=== PATIENT | female | born 1935 | race Caucasian/White ===

== ENCOUNTER → 2020-05-03 | Outpatient (CLI) | payer MEDICARE | LOC: LAB 13:33 → LAB SHORT 13:33 | DX: R30.0 Dysuria (principal) | CPT/HCPCS: 87077; 87086; 87186 ==

== ENCOUNTER 2022-12-21 07:25 | Emergency (ER) | payer MEDICARE ==
[~2022-12-21] VITALS: Ht 157.5 cm; Wt 74.8 kg
[2022-12-21 08:26] LABS: BASOPHILS ABSOLUTE AUTO 0.05 K/mm3 (0.00-0.23); BASOPHILS PERCENT AUTO 1 % (0-2); EOSINOPHILS ABSOLUTE AUTO 0.32 K/mm3 (0.00-0.68); EOSINOPHILS PERCENT AUTO 5 % (0-6); Hematocrit 40.3 % (33.0-51.0); Hemoglobin 13.5 g/dL (11.5-16.0); IMMATURE GRAN ABSOLUTE AUTO 0.01 K/mm3 (0.00-0.10); IMMATURE GRAN PERCENT AUTO 0 % (0-1); LYMPHOCYTES ABSOLUTE AUTO 1.24 K/mm3 (0.84-5.20); LYMPHOCYTES PERCENT AUTO 19 % (21-46); MONOCYTES ABSOLUTE AUTO 0.61 K/mm3 (0.16-1.47); MONOCYTES PERCENT AUTO 9 % (4-13); Mean Corpuscular HGB 32.8 pg (26.0-34.0); Mean Corpuscular HGB Conc 33.5 g/dL (31.5-36.5); Mean Corpuscular Volume 98 fL (80-100); NEUTROPHILS ABSOLUTE AUTO 4.42 K/mm3 (1.96-9.15); NEUTROPHILS PERCENT AUTO 66 % (41-73); Platelet Count 293 K/mm3 (150-400); RDW Standard Deviation 46.6 fL (35.1-46.3); Red Blood Cell Count 4.12 M/mm3 (3.80-5.20); White Blood Cell Count 6.65 K/mm3 (4.00-11.30)
[2022-12-21] MEDS ORDERED: MELO7.5 PO (08:36)
[2022-12-21] MEDS ORDERED: VENLAFAXINE HCL75 M2 PO (08:36)
[2022-12-21] MEDS ORDERED: K-Dur10 MEQ (08:36)
[2022-12-21] MEDS ORDERED: ZANAFLEX413 PO (08:36)
[2022-12-21] MEDS ORDERED: FUROSEMIDE20 MG PO (08:36)
[2022-12-21] MEDS ORDERED: DOXY100 PO (08:36)
[2022-12-21] MEDS ORDERED: LOSA50 PO (08:36)
[2022-12-21] MEDS ORDERED: OMEP20ER PO ×2 (08:37→10:15)
[2022-12-21] MEDS ORDERED: XARELTO20 M1 PO (08:37)
[2022-12-21 08:42] LABS: Albumin, Blood 3.7 g/dL (3.4-5.0); Albumin/Globulin Ratio 0.9 (0.8-1.8); Bilirubin, Total 0.6 mg/dL (0.1-1.0); Bun/Creatinine Ratio 16.4 (12.0-20.0); Calcium, Blood 10.4 mg/dL (8.5-10.1); Creatinine, Blood 0.98 mg/dL (0.40-1.00); Globulin, Blood 3.9 g/dL (2.2-4.0); Total Protein, Blood 7.6 g/dL (6.4-8.2)
[2022-12-21 10:00] VITALS: BP 157/75
[2022-12-21] MEDS ORDERED: ONDA4ODT MM (10:15)
== END 2022-12-21 10:29 | disposition home or self-care (01) ==
LOC: ER 07:25
PROVIDERS: Emergency Medicine
DX: R42 Dizziness and giddiness (principal); R10.9 Unspecified abdominal pain; R11.0 Nausea; Z79.899 Other long term (current) drug therapy; I10 Essential (primary) hypertension; E78.5 Hyperlipidemia, unspecified; K21.9 Gastro-esophageal reflux disease without esophagitis
CPT/HCPCS: 71045; 80053; 83880; 84484; 85025; 93005; 93010; 96374; 99284-25; J2405

== ENCOUNTER 2024-02-03 07:30 | Inpatient (IN) | payer MEDICARE ==
[~2024-02-03] VITALS: Ht 157.5 cm; Wt 73.8 kg
[2024-02-03] VITALS (13 sets, daily range): BP systolic 99–135; BP diastolic 48–83
[~2024-02-03 07:30] MED LIST: DOXY100 PO; FUROSEMIDE20 MG PO; K-Dur10 MEQ PO; LOSA50 PO; MELO7.5 PO; OMEP20ER PO; ONDA4ODT MM; VENLAFAXINE HCL75 M2 PO; XARELTO20 M1 PO; ZANAFLEX413 PO
[2024-02-03] MEDS ORDERED: Dexamethasone Sod Phos 10 MG/ML 1ML VIAL ONE (09:00)
[2024-02-03] MEDS ORDERED: propofoL 20 ML IV ONE ×3 (09:00→11:56)
[2024-02-03] MEDS ORDERED: FentaNYL Citrate 50 MCG/ML 2 ML Injection ONE (09:00)
[2024-02-03] MEDS ORDERED: Acetaminophen 500 MG Tab PO SCH ×2 (09:05→16:00)
[2024-02-03] MEDS ORDERED: Lactated Ringer's 1,000 ML IV SCH ×2 (09:05→09:45)
[2024-02-03] MEDS ORDERED: Ropivacaine 0.5% HCl/Pf 123.125 MG,EPINEPHrine HCL 0.25 MG,Ketorolac Tromethamine 15 MG... INFIL SCH (09:05)
[2024-02-03] MEDS ORDERED: Tranexamic Acid 100 ML IV SCH (09:05)
[2024-02-03] MEDS ORDERED: Chlorhexidine Mouth Care 15 ML UDC MT SCH (09:05)
[2024-02-03] MEDS ORDERED: CeFAZolin Sodium 2,000 MG in NS 100 ML IV SCH ×2 (09:05→18:00)
--- NOTE | 2024-02-03 09:38 | NUR ---
INTO SDS VIA WHEELCHAIR. PTR REPORTS 710 LEFT HIP PAIN. HISTORY AND ALLERGIES REVIEWED. LUNGS CLEAR. NPO STAUS CONFIRMED. Patient reports completing Chlorhexadine shower X2 prior to admission to hospital.Surgical site prepped with 2% Chlorhexidine cloth wipe.
[2024-02-03] MEDS ORDERED: OxyCODONE HCL 5 MG TAB PO PRN ×2 (09:40)
[2024-02-03] MEDS ORDERED: Metoclopramide HCl 5MG / ML 2ML Vial IV PRN (09:40)
[2024-02-03] MEDS ORDERED: Magnesium Hydroxide Conc 10 ML UDC PO PRN (09:40)
[2024-02-03] MEDS ORDERED: DiphenhydrAMINE HCL 25 MG Cap PO PRN (09:40)
[2024-02-03] MEDS ORDERED: Ondansetron HCl 2 MG / ML 2ML Vial IV PRN (09:40)
[2024-02-03] MEDS ORDERED: FLU VACC TS2024-25(6MOS UP)/PF 45 MCG/0.5 ML SYRINGE IM PRN (09:40)
[2024-02-03] MEDS ORDERED: Bisacodyl 10 MG Supp PR PRN (09:45)
[2024-02-03] MEDS ORDERED: HYDROmorphone HCl/Pf 1MG SYR IV PRN (09:45)
[2024-02-03] MEDS ORDERED: Promethazine HCl 25 MG Tab PO PRN (09:50)
[2024-02-03] MEDS ORDERED: Prochlorperazine Edisylate 10 mg Vial IV PRN (09:50)
[2024-02-03] MEDS ORDERED: Glycopyrrolate 0.2 MG/ML 5ML VIAL ONE (11:27)
[2024-02-03] MEDS ORDERED: TIZA4 PO (11:38)
[2024-02-03] MEDS ORDERED: ATORVASTATIN CA40 M1 PO (11:40)
[2024-02-03] MEDS ORDERED: OMEP20ER PO (11:41)
[2024-02-03] MEDS ORDERED: FLUT.05NI (11:43)
[2024-02-03] MEDS ORDERED: Ketorolac Tromethamine 15mg Vial IV SCH (13:25)
--- NOTE | 2024-02-03 19:23 | NUR ---
SHIFT SUMMARY WASN'T ABLE TO WORK w/ THERAPY BUT DID GET UP TO AMBULATE TO BATHROOM & VOID. DECLINED UP TO CHAIR. EATING & DRINKING, SL.
[2024-02-03] MEDS ORDERED: Docusate Sodium 100 MG Cap PO SCH (21:00)
[2024-02-04] VITALS (8 sets, daily range): BP systolic 96–137; BP diastolic 40–67
[2024-02-04] MEDS ORDERED: NS 1,000 ML BAG IR PRN (02:15)
[2024-02-04] MEDS ORDERED: NS 250 ML IV PRN (02:15)
--- NOTE | 2024-02-04 04:25 | NUR ---
SHIFT SUMMARY POD1 L HIP. PAIN MANAGED UTILIZING NPIS AND PER EMAR. UP TO BATHROOM OVERNIGHT FOR VOIDING, SBA USING FWW. PIV IN RFA INFILTRATED 0, NEW PIV STARTED LAC. SURGICAL SITE AT L HIP CDI. PT VOICED UNDERSTANDING OF PLAN OF CARE, DENIES QUESTIONS/CONCERNS AT THIS TIME.
[2024-02-04 05:43] LABS: BASOPHILS ABSOLUTE AUTO 0.04 K/mm3 (0.00-0.23); BASOPHILS PERCENT AUTO 1 % (0-2); EOSINOPHILS ABSOLUTE AUTO 0.23 K/mm3 (0.00-0.68); EOSINOPHILS PERCENT AUTO 3 % (0-6); Hematocrit 34.6 % (33.0-51.0); Hemoglobin 11.1 g/dL (11.5-16.0); IMMATURE GRAN ABSOLUTE AUTO 0.01 K/mm3 (0.00-0.10); IMMATURE GRAN PERCENT AUTO 0 % (0-1); LYMPHOCYTES ABSOLUTE AUTO 1.12 K/mm3 (0.84-5.20); LYMPHOCYTES PERCENT AUTO 15 % (21-46); MONOCYTES ABSOLUTE AUTO 0.88 K/mm3 (0.16-1.47); MONOCYTES PERCENT AUTO 12 % (4-13); Mean Corpuscular HGB 33.3 pg (26.0-34.0); Mean Corpuscular HGB Conc 32.1 g/dL (31.5-36.5); Mean Corpuscular Volume 104 fL (80-100); NEUTROPHILS ABSOLUTE AUTO 5.36 K/mm3 (1.96-9.15); NEUTROPHILS PERCENT AUTO 70 % (41-73); Platelet Count 221 K/mm3 (150-400); RDW Coefficient Variation 13.4 % (11.7-14.2); RDW Standard Deviation 51.4 fL (35.1-46.3); Red Blood Cell Count 3.33 M/mm3 (3.80-5.20); White Blood Cell Count 7.64 K/mm3 (4.00-11.30)
[2024-02-04 05:57] LABS: Bun/Creatinine Ratio 29.2 (12.0-20.0); Calcium, Blood 9.1 mg/dL (8.5-10.1); Creatinine, Blood 1.06 mg/dL (0.40-1.00); Magnesium, Blood 1.9 mg/dL (1.6-2.4); Potassium, Blood 3.6 mmol/L (3.5-5.5)
[2024-02-04] MEDS ORDERED: Aspirin 81 MG Chew PO SCH (09:00)
[2024-02-04] MEDS ORDERED: Losartan Potassium 50 MG Tab PO SCH (09:00)
[2024-02-04] MEDS ORDERED: Omeprazole 20 MG CapCR PO SCH (09:00)
[2024-02-04] MEDS ORDERED: Venlafaxine HCl 75 MG CapCR PO SCH (09:00)
--- NOTE | 2024-02-04 10:56 | NUR ---
ASSUMED CARE OF PT AT 0815 WITH REPORT. PT AWAKE AND ALERT SITTING IN HER RECLINER FOR BREAKFAST. HAS SINCE WORKED WITH P.T. AND DEMONSTRATES APPROPRIATE HIP PRECAUTIONS. DRESSING INTACT TO L HIP. ICE TO SITE FOR COMFORT. AMBULATED IN TO BATHROOM WITH 1 PERSON ASSIST USING A FWW.
[2024-02-04] MEDS ORDERED: Rivaroxaban 10 MG Tab PO SCH (11:30)
--- NOTE | 2024-02-04 16:57 | NUR ---
SHIFT SUMMARY PT UP IN RECLINER THROUGH THE DAY. DID TAKE A NAP THIS AFTERNOON. 1 PERSON ASSIST TO BATHROOM WITH FWW. NO PAIN MEDS NEEDED BEYOND SCHEDULED MEDS. STATES SHE HAS HAD FOOT CRAMPS THIS AFTERNOON. PLAN TO DISCHARGE TOMORROW.
--- NOTE | 2024-02-04 17:01 | NUR ---
ASSUMPTION OF CARE PT RESTING IN CHAIR. NO NEEDS STATED AT THIS TIME. VSS, CONT BIOX & TELE IN USE. NO STATED NEEDS AT THIS TIME. CALL LIGHT IN REACH
[2024-02-05 02:59] VITALS: BP 117/51
--- NOTE | 2024-02-05 04:36 | NUR ---
SHIFT SUMMARY POD2 L HIP. L HIP WITH SUTURES, TISSUE ADHESIVE, TAPE. SCANT SANG DRAINAGE. EDGES WELL APPROX, NO S/SX INFECTION. SBA USING FWW AND GAIT BELT. PAIN MANAGED UTILIZING NPIS AND PER EMAR. PT ABLE TO VOICE NEEDS, CALL LIGHT IN REACH AND INSTRUCTED ON USE. PT VOICED UNDERSTANDING OF PLAN OF CARE, DENIES QUESTIONS/CONCERNS AT THIS TIME.
[2024-02-05 07:41] VITALS: BP 130/64
[2024-02-05] MEDS ORDERED: Amlodipine Bes2.5 MG PO (10:07)
[2024-02-05 10:08] VITALS: BP 112/47
[2024-02-05] MEDS ORDERED: Flonase 0.05% N16 GM (10:08)
[2024-02-05] MEDS ORDERED: ATOR40TA PO (10:08)
[2024-02-05] MEDS ORDERED: TIZA4 PO (10:12)
--- NOTE | 2024-02-05 11:26 | NUR ---
discharged DC INSTRUCTIONS REVIEWED W/PT BY ARPITA Esteban RN. IV DC'D. VSS. PT LEFT UNIT IN WC W/POSSESSIONS AND DC PAPERWORK IN HAND, ACCOMPANIED BY FAMILY.
== END 2024-02-05 11:13 | disposition home or self-care (01) | DRG 522 ==
LOC: SURS 09:00
PROVIDERS: ADMIT Orthopaedic Surgery
PROC: 0SRB04A Replacement of Left Hip Joint with Ceramic on Polyethylene Synthetic Substitute, Uncemented, Open Approach (ICD-10-PCS; principal; 2024-02-03 10:00)
DX: S72.002A Fracture of unspecified part of neck of left femur, initial encounter for closed fracture (principal); M16.12 Unilateral primary osteoarthritis, left hip; W18.30XA Fall on same level, unspecified, initial encounter; K21.9 Gastro-esophageal reflux disease without esophagitis; Z86.73 Personal history of transient ischemic attack (TIA), and cerebral infarction without residual deficits; I10 Essential (primary) hypertension; Z86.711 Personal history of pulmonary embolism; Z96.641 Presence of right artificial hip joint; Z79.82 Long term (current) use of aspirin; Z79.891 Long term (current) use of opiate analgesic; Z79.01 Long term (current) use of anticoagulants; Z88.8 Allergy status to other drugs, medicaments and biological substances; Z88.1 Allergy status to other antibiotic agents; Z91.013 Allergy to seafood; Z79.899 Other long term (current) drug therapy; Z01.812 Encounter for preprocedural laboratory examination
CPT/HCPCS: 36415; 72170; 80048; 83735; 85025; 97110; 97116; 97162; A6010; A9270; C1776; J0171; J0690; J0735; J1100; J1885; J2704; J2795; J3010; J7120